=== PATIENT | male | born 1995 | race Caucasian/White ===

== ENCOUNTER 2018-11-17 08:53 | Emergency (ER) | payer BC ==
[~2018-11-17] VITALS: Ht 182.9 cm; Wt 81.8 kg
[2018-11-17 09:05] VITALS: TEMP 98.7
[2018-11-17 11:00] VITALS: BP 132/73; PULSE 81
== END 2018-11-17 11:00 | disposition left against medical advice (07) ==
LOC: COL.ER 08:53
DX: S02.609A Fracture of mandible, unspecified, initial encounter for closed fracture (principal); Z23 Encounter for immunization; W19.XXXA Unspecified fall, initial encounter; W22.8XXA Striking against or struck by other objects, initial encounter